=== PATIENT | male | born 1950 | race Caucasian/White ===

== ENCOUNTER 2021-01-17 12:43 | Outpatient (CLI) | payer MEDICARE, SELFPAY ==
--- NOTE | 2021-01-17 12:54 | MR_ITS ---
WS: [id number] MRA ANGIOGRAPHY [place] HISTORY: HEADACHE UNSPECIFIED COMPARISON: None available. TECHNIQUE: 3-D MR angiography is performed of the false pass of [place]. All images are reviewed including source images. Distal vertebral and basilar arteries are intact with no significant stenosis or plaque. Posterior ce rebral arteries are normal course and caliber. Posterior communicating arteries are both patent. Intracranial portion of the internal carotid arteries are normal course and caliber. No significant a therosclerosis, stenosis or aneurysm identified. Middle and anterior cerebral arteries are both paten t with no significant disease. Anterior communicating artery is also normal. MR/MR angio head wo con [id number] IMPRESSION: Normal MRA false pass of [place]. No false pass of [place] aneurysm.
== END 2021-01-17 12:44 | disposition home or self-care (01) ==
PROVIDERS: PCP Family Medicine; Visit Provider Family Medicine
DX: R51.9 Headache, unspecified (principal)
CPT/HCPCS: 70544